=== PATIENT | male | born 1980 | race Caucasian/White ===

== ENCOUNTER 2021-01-09 18:01 | Emergency (ER) | payer OTHER ==
[~2021-01-09] VITALS: Ht 172.7 cm; Wt 109.1 kg
[2021-01-09] MEDS ORDERED: APIX5TAB PO (18:13)
[2021-01-09] MEDS ORDERED: QUET50TA15 PO (18:13)
[2021-01-09] MEDS ORDERED: LURA20TA PO (18:13)
[2021-01-09] MEDS ORDERED: BUSP5TAB20 PO (18:13)
[2021-01-09] MEDS ORDERED: KETOROLAC TROMETHAMINE 30 MG/ML VIAL IVP ONE (18:30)
[2021-01-09] MEDS ORDERED: DiphenhydrAMINE HCL 50 MG/ML VIAL IVP ONE (18:30)
[2021-01-09] MEDS ORDERED: METOCLOPRAMIDE HCL 5 MG/ML 2 ML VIAL IVP ONE (18:30)
[2021-01-09] MEDS ORDERED: SODIUM CHLORIDE 0.9% 1,000 ML IV ONE (18:30)
[2021-01-09 19:33] VITALS: BP 135/68
== END 2021-01-09 20:17 | disposition home or self-care (01) ==
LOC: EMS 18:03
DX: R51.9 Headache, unspecified (principal); F20.9 Schizophrenia, unspecified; F11.90 Opioid use, unspecified, uncomplicated
CPT/HCPCS: 70450; 96361; 96374; 96375; 99284; J1200; J1885; J2765; J7030